=== PATIENT | female | born 1985 | race Caucasian/White ===

== ENCOUNTER 2022-10-10 03:39 | Emergency (ER) | payer OTHER, SELFPAY ==
[2022-10-10 04:03] VITALS: BP 114/66; PULSE 111; RESP 16; TEMP 38.1; O2SAT 100; BMI 27.2
--- OUTSIDE RECORDS SUMMARY | 2022-10-10 04:40 | XMS_ITS | Continuity of Care Document ---
:1985 [facility] Address [address] [place] [id number]- Care Team Providers Name Role Phone Zane NEWELL, Mary Primary Care Physician [place] [facility] [place] 09[place]21 [facility] [address] [place] [address] Allergies, Adverse Reactions, Alerts Substance Reaction Severity Status NKA Active Social History Social History Type Response Smoking Status Never (less than 100 in life time) entered on: 09/08/20 Sex
--- OUTSIDE RECORDS SUMMARY | 2022-10-10 04:40 | XMS_ITS | Continuity of Care Document ---
:1985 Author Organization [facility] Address [address] [place] [address]- Care Team Providers Name Role Phone Zane NEWELL, Mary Primary Care Physician Encounter [facility] Date(s): 04/23/21 - 05/23/21 [facility] [address] [place] [address]- Allergies, Adverse Reactions, Alerts Substance Reaction Severity Status NKA Active Medications naproxen 500 mg oral tablet 1 tablet = 500 mg, By Mouth, 2 times a day, 0 Refills, Maintenance, 09/08/20 16:22:00 EST Start Date: 09/08/20 Status: Ordered Social History Social History Type Response Smoking Status Never (less than 100 in life time) entered on: 09/08/20 Sex
--- OUTSIDE RECORDS SUMMARY | 2022-10-10 04:40 | XMS_ITS | Continuity of Care Document ---
:1985 Author Organization [facility] Address [address] [place] [address]- Care Team Providers Name Role Phone Zane NEWELL, Mary Primary Care [id number] [address] [facility] [place] [address]- Attending Physician: Sofía Lopez MD Admitting Physician: Sofía Lopez MD Referring Physician: Mary Degroot NP Allergies, Adverse Reactions, Alerts No Known Allergies Medications Flonase 50 mcg/inh nasal spray 1 sprays, Nares, Both, 2 times a day, # 16 Gm, 0 Refills, Maintenance, 09/30/19 18:24:24 EST, [place] Start Date: 09/30/19 Status: Ordered Social History Social History Type Response Smoking Status Never (less than 100 in life time) entered on: 09/08/20 Sex
[2022-10-10 04:49] LABS: Influenza A PCR POSITIVE (Negative); Influenza B PCR NEGATIVE (Negative); Resp Syncy Virus RNA Qual PCR NEGATIVE (Negative); SARS COV2 PCR INHOUSE NEGATIVE (Negative)
--- NOTE | 2022-10-10 05:42 | ED_ITS ---
HPI - URI/Sore Throat General Chief Complaint: Upper Respiratory Symptoms Stated Complaint: flu like symptoms Time Seen by Provider: 10/10/22 04:43 Source: patient and supervisor [employer] Mode of arrival: ambulatory Limitations: no limitations History of Present Illness HPI Narrative: 37-year-old female came in for evaluation of fever, body aches, coughing, sore throat, patient was exposed to her daughter who is sick patient's symptoms started since yesterday. Related Data Previous Rx's Medication Instructions Recorded oseltamivir 75 mg capsule (Tamiflu) 75 mg PO BID 5 days #10 caps 10/10/22 Allergies Allergy/AdvReac Type Severity Reaction Status Date / Time No Known Allergies Allergy Verified 10/10/22 05:40 Review of Systems Review of Systems: All other systems are reviewed and are negative Constitutional: Reports as per HPI and Reports no additional constitutional complaints Eyes: Reports as per HPI and Reports no additional eye complaints Reports system reviewed and no additional complaints, except as documented Cardiovascular: Reports as per HPI and Reports no additional cardiovascular complaints Respiratory: Reports as per HPI and Reports no additional respiratory complaints Gastrointestinal: Reports as per HPI and Reports no additional gastrointestinal complaints Genitourinary: Reports no additional female genitourinary complaints Musculoskeletal: Reports no additional musculoskeletal complaints Skin/Breast: Reports system reviewed and no additional complaints, except as docu Psychiatric: Reports no additional psychiatric complaints Endocrine: Reports no additional endocrine complaints Hematologic/Lymphatic: Reports no additional hematologic/lymphatic complaints Allergic/Immunologic: Reports no additional allergic/immunologic complaints Reports system reviewed and no additional complaints, except as documented and Reports Abnormal speech present [facility] Social History Social History Advance Directives: No Physical Exam Vital Signs: Vital Signs: Last Vital Signs Temp 100.6 F H 10/10/22 04:03 Pulse 111 H 10/10/22 04:03 Resp 16 10/10/22 04:03 BP 114/66 10/10/22 04:03 Pulse Ox 100 10/10/22 04:03 O2 Del Method 10/10/22 04:03 BMI result Body Mass Index 27.2 Vital signs have been reviewed as appeared to be correct. Blood pressure normal. Heart rate normal. Respiration rate normal. Temperature normal. Oxygen saturation normal. Appearance: Alert. Oriented X3. No acute distress. Head: Normal external exam. Normocephalic. Atraumatic. No Le signs noted. No raccoon eyes noted Eyes: PERRLA. EOMI. Conjunctiva and sclera normal. Eyelids normal. ENT: TM's Normal. Pharynx normal. Uvula midline. Moist mucous membranes. No trismus noted. No drooling noted. No muffled voice noted. Neck: Normal inspection. Neck supple. FROM. No adenopathy. Thyroid Normal. No meningeal signs. No neck mass noted. CVS: Normal heart rate and rhythm. Heart sound normal. No murmurs noted. Pulses normal throughout. Respiratory: No respiratory distress. Painless inspiration. Breath sounds normal. No wheezes/rales/rhonchi noted. Chest nontender. No accessory muscle usage noted or decreased air movement noted. Abdomen: Soft and nontender. Bowel sounds normal in all 4 quadrants. No distention noted. No organomegaly noted. No visible injury noted. Back: No CVA tenderness. Full range of motion noted. Skin: Skin warm and dry. Normal skin color. Normal skin turgor. No rashes/lesions/lacerations noted. Extremities: No lower extremity edema. Extremities exhibit normal range of motion. Extremities nontender. Neuro: Oriented X 3. Cranial nerve exam: II-XII are grossly intact No motor deficit. No sensory deficit. Reflexes normal. Course Course Course Narrative: Patient is positive flu a, will start the patient on Tamiflu and Tylenol for fever. Medical Decision Making Medical Decision Making Differential Diagnoses: Differential diagnosis (Influenza/RSV/COVID.) Lab Attestation: I reviewed the patient's lab results. Discharge Plan Discharge Clinical Impression: Influenza Patient Disposition: Home, Self-Care Instructions: Influenza (ED) Prescriptions: New oseltamivir [Tamiflu] 75 mg capsule 75 mg PO BID 5 Days Qty: 10 0RF Referrals: Physician,Unknown J [Primary Care Provider] - Stand Alone Forms: Work/School Release
[2022-10-10] MEDS: Acetaminophen 325 MG TABLET 650 MG PO (05:49)
== END 2022-10-10 06:24 | disposition home or self-care (01) ==
PROVIDERS: Emergency Provider Emergency Medicine
DX: J10.1 Influenza due to other identified influenza virus with other respiratory manifestations (principal); M79.10 Myalgia, unspecified site; R50.9 Fever, unspecified; R05.9 Cough, unspecified; Z20.822 Contact with and (suspected) exposure to COVID-19
CPT/HCPCS: 0241U; 99283

== ENCOUNTER 2025-02-28 22:36 | Emergency (ER) | payer OTHER, SELFPAY ==
[2025-02-28 22:43] VITALS: BP 120/70; PULSE 78; RESP 18; TEMP 37; O2SAT 98; BMI 26.9
--- OUTSIDE RECORDS SUMMARY | 2025-02-28 22:52 | XMS_ITS | Clinical Summary ---
Author Organization [facility] Address [address] [place] [address] Care Team Providers Care Pharmacovigilance Safety Expert Name Role Phone Heydi Riggins PA-C Primary Care Provider [phone] Source Comments PLEASE NOTE, if this patient is a minor, it may be UNLAWFUL to discuss sensitive information that is contained in these records (such as FAMILY PLANNING, MENTAL HEALTH or SUBSTANCE ABUSE) with the minor patient's parent or other person without the patient's specific authorization.[facility] Allergies No known active allergies Medications hydrOXYzine HCL (ATARAX) 50 mg tabletIndicatio ns:Anxiety,Trou ble in sleeping Take 1 Tablet by mouth nightly at bedtime as needed for anxiety or sleep 30 Tablet 2 2 Active benzonatate (TESSALON) 200 mg capsuleIndicati ons:Viral URI with cough Take 1 Capsule by mouth 3 (three) times daily as needed for cough 30 Capsule 2 Active dextromethorpha n-guaifenesin (ROBITUSSIN COUGH-CHEST JOHNY DM) 5-100 mg/5 mL syrupIndication s:Viral URI with cough Take 5 mL by mouth 3 (three) times daily as needed for cough or congestion 236 mL 2 Active Active Problems Problem Noted Date Diagnosed Date H/O tubal ligation 10/18/2019 Chronic pain of left knee 10/18/2019 Encounter for initial prescription of contracept michelle pills 10/18/2019 H/O LEEP 10/18/2019 Overview (10/18/2019): Performed - 06/03/2019. 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 Margins are negative for dysplasia. Low grade squamous intraepit helial lesion (LGSIL) on cervical Pap smear 10/18/2019 Overview (10/18/2019): Diagnosed 03/01/2019. Negative for HPV 16, 18/45 Status post bilateral salpingectomy 10/18/2019 Overview (10/18/2019): Per report 01/10/2015: Bilateral Segmental salpingectomy. Right fallopian tube: Benign fallopian tube with no significant abnormality. Left Fallopian tube: Benign fallopian tube with no significant abnormality. Fibrocystic breast changes, bilateral 09/20/2019 Overview (10/18/2019): Dx'd in [place] via Mammography 2018. Breast U/S done 02/03/2019. Impression: There is a 0.9 cm cyst at 2:00 in the right breast. BI-RADS Cat 2, benign finding right breast. Menorrhagia with regular cycle 09/20/2019 Immunizations Immunization Administration Dates Next Due Flu, Preservative Free 08/23/2020,09/20/2019 Hep B,adult,adjuvanted (HEPLISAV) 02/06/2023 MODERNA COVID-19 VACCINE BIVALENT, BLUE CAP, 6M+ 02/06/2023 Moderna COVID-19 Vaccine, re d cap blue label, 12+ Primary Series 01/05/2021,12/08/2020 PPD 01/02/2021 Family History Medical History Relation Name Comments Asthma Brother No Known Problems Daughter 2 Heart attack Father Stomach Cancer Maternal Grandmother Prostate Cancer Maternal Uncle 2 Asthma Mother COPD Mother Diabetes Mother Asthma Sister No Known Problems Son Relation Name Status Comments Brother Alive Daughter 2 Alive Father Maternal Grandmother Maternal Uncle 2 Alive Mother Alive Sister Alive Son Alive Social History Tobacco Use Types Packs/Day Years Used Date Smoking Tobacco: Never Smokeless Tobacco: Never Tobacco Cessation:Counseling Given: Not Answered Alcohol Use Standard Drinks/Week Comments Never 0 (1 standard drink = 0.6 oz pur e alcohol) Social Connections Answer Date Recorded Connectedness 0 02/11/2022 Financial Resource Strain Answer Date R ecorded Financial Resource Strain 0 2021 Stress Answer Date Recorded Stress 0 02/11/2022 Physical Activity Answer Date Recorded Physical Activity 0 09/20/2019 Food Insecurity Answer Date Recorded Food 0 02/11/2022 Transportation Needs Answer Date Record ed Transportation 0 02/11/2022 Housing Stability Answer Date Recorded Housing 0 02/11/2022 Safety and Environment Answer Date Bill rded Safety 0 02/11/2022 Utilities Answer Date Recorded Utilities 0 02/11/2022 Employment Answer Date Recorded Employment 0 09/20/2019 Comments No Sex and Gender Information Value Date Recorded Sex Assigned at Female 09/20/2019 9:27 AM PST Legal Sex Female 6:51 AM PDT Gender Identity Female 09/20/2019 9:27 AM PST Sexual Orientation Straight 09/20/2019 9: 27 AM PST Occupation Industry Job Start Date Job End Date 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 [employer] Not on file Not on file Not on file Last Filed Vital Signs Vital Sign Reading Time Taken Comments Blood Pressure 120/80 02/06/2023 10:30 AM EDT Pulse 88 02/06/2023 10:30 AM EDT Temperature 36.8 ??C (98.3 ??F) 02/06/2023 10:30 AM E DT Respiratory Rate 16 02/06/2023 10:30 AM EDT Oxygen Saturation 100% 02/06/2023 10:30 AM EDT Inhaled Oxygen Concentration - - Weight 62.9 kg (138 lb 9.6 oz) 02/06/2023 10:30 AM EDT Height 149.9 cm (4' 11 ) 02/06/2023 10:30 AM EDT Body Mass Index 27.99 02/06/2023 10:30 AM EDT Plan of Treatment Health Maintenance Due Date Last Done Comments Anxiety Screening 1986 HPV Screening 1985 Pap + HPV 1986 Tobacco Screening 1985 Cervical Cancer Screening 06/07/2020 Pap Smear 06/07/2020 06/07/2019 (Simin chester by Outside Provider) Relationship Safety Screening/Counseling 02/11/2023 02/11/2022, 01/24/2021, 09/20/2019 Imm-Hepatitis B (2 of 2 - Cp G 2-dose series) 03/06/2023 02/06/2023 Annual Preventive Care Visit 02/07/202404/2023, 01/24/2021, 10/18/2019 [id number] ( season) 2024 02/06/2023, 10/02/2021, 01/05/2021, Additional history exists Imm-Influenza (#1) 2024 08/23/2020, 09/20/2019 Alcohol and Drug Screen 11/03/2024 02/07/20 23, 02/11/2022, 01/24/2021, Additional history exists Depression Annual Screen 11/03/2024 02/06/2023 Hypertension Screening (#1) 02/05/2026 Diabetes Screening 02/06/2026 02/06/2023, 1 11/21/2018, 09/21/2019 Imm-DTaP/Tdap/Td (2 - Td or Tdap) 11/03/2027 11/03/2017 (Managed by Outside Provider) HIV Screening Completed 09/21/2019 Hepatitis C Screening Completed 02/06/2023 Cervical Ablation/Cold-Knife Conization Discontinued Cervical Cryotherapy Discontinued Colposcopy Discontinued Endometrial Biopsy Discontinued Excision/Leep Discontinued HPV Genotyping Discontinued Vaginal Pap Discontinued Vulvoscopy Discontinued Procedures Procedure Name Priority Date/Time Associated Diagnosis Comments ACUTE HEPATITIS PANEL W/RFLX Routine 02/06/2023 11:06 AM EDT Routine screening for STI (sexually transmitted infection) Annual physical exam COMPREHENSIVE METABOLIC PANEL Routine 02/06/2023 11:06 AM EDT Menorrhagia with regular cycle ANTIBODY HIV-1&HIV-2 SINGLE RESULT Routine 09/21/2019 9:02 AM EST Encounter for medical examination to establish care from Last 3 Months or Most Recently Relevant to Health Maintenance Results * ACUTE HEPATITIS PANEL W/RFLX (02/06/2023 11:06 AM EDT) HEPATITIS A IGM ANTIBODY NON-REACT MICHELLE NON-REACT MICHELLE [employer] [facility] COMMENT [employer] [facility] HEPATITIS B SURFACE ANTIGEN NON-REACT MICHELLE NON-REACT MICHELLE [employer] [facility] HEPATITIS B CORE IGM ANTIBODY NON-REACT MICHELLE NON-REACT MICHELLE [employer] HEPATITIS C ANTIBODY NON-REACT MICHELLE NON-REACT MICHELLE [employer] SIGNAL TO CUT-OFF 0.07 <1.00 [employer] Comment: HCV antibody was non-reactive. There is no laboratory evidence of HCV infection. In most cases, no further action is required. However, if recent HCV exposure is suspected, a test for HCV RNA (test code 94814) is suggested. For additional information please refer to http://Roundbox.Pivto/faq/DMQ36s8 (This link is being provided for informational/ educational purposes only.) Blood Blood / Unknown 02/06/2023 1 1:06 AM EDT 02/06/2023 11:06 AM EDT Narrative [facility] - 02/07/2023 1:56 AM EDT For additional information, please refer to http://Roundbox.Pivto/faq/BJV609 (This link is being provided for informational/ educational purposes only.) Heydi Riggins PA-C LAB - BLOOD DRAW Final Resul t [facility] [address] [address], [employer] [address] [id number] * COMPREHENSIVE METABOLIC PANEL (02/06/2023 11:06 AM EDT) GLUCOSE 96 65 - 99 mg/dL [employer] [facility] Comment: ?Fasting reference interval UREA NITROGEN (BUN) 11 7 - 25 mg/dL [employer] [facility] CREATININE (blood) 0.63 0.50 - 0.97 mg/dL [employer] [facility] EGFR 118 > OR = 60 mL/min/1 .73m2 [employer] Comment: The eGFR is based on the CKD-EPI 2020 equation. To calculate the new eGFR from a previous Creatinine or Cystatin C result, go to https://www.kidney.org/professionals/ kdoqi/gfr%5Fcalculator BUN/CREATININE RATIO NOT APPLICABLE 6 [employer] SODIUM 139 135 - 146 mmol/L [employer] POTASSIUM 4.6 3.5 - 5.3 mmol/L [facility] CHLORIDE 106 98 - 110 mmol/L [facility] CARBON DIOXIDE 26 20 - 32 mmol/L [facility] CALCIUM 9.0 8.6 - 10.2 mg/dL [facility] PROTEIN, TOTAL 7.0 6.1 - 8.1 g/dL [facility] ALBUMIN 4.2 3.6 - 5.1 g/dL [facility] GLOBULIN 2.8 1.9 - 3.7 g/dL (calc) [facility] ALBUMIN/GLOBUL IN RATIO 1.5 1.0 - 2.5 (calc) [facility] BILIRUBIN, TOTAL 0.5 0.2 - 1.2 mg/dL [facility] ALKALINE PHOSPHATASE 62 31 - 125 U/L [facility] AST 12 10 - 30 U/L [facility] ALT 11 6 - 29 U/L [facility] Blood Blood / Unknown 02/06/2023 1 1:06 AM EDT 02/06/2023 11:06 AM EDT Heydi Riggins PA-C LAB - BLOOD DRAW Final Resul t [facility] [address] [address], [facility] [address] [address] * HIV-1 & HIV-2 ANTIBODIES (09/21/2019 9:02 AM EST) [facility] Signature HIV 1 AND 2 ANTIBODY SCREEN NEGATIVE NEGATIVE [employer] [facility] Comment: This assay is a 4th generation assay allowing for earlier detection of HIV infection by detecting the presence of the HIV-1 p24 antigen as well as the traditional antibodies to HIV type 1 (including group O) and type 2. ??Use of a 4th generation assay is the current CDC recommendation for HIV screening. Blood specimen (specimen) Blood / Unknown 09/21/2019 9:02 AM EST 09/21/2019 9:10 AM EST Narrative [facility] - 09/21/2019 2:32 PM EST I and love and you, a member of [facility] [address] [place] [address] Award Clerk - Tamar Henning MD PT ID [id number] ORD# [id number] us Mary [facility]UE LAB - BLOOD DRAW Final Resu lt [employer] [facility] [address] [place] [address], from Last 3 Months or Most Recently Relevant to Health Maintenance Insurance [id number] Care Teams Pharmacovigilance Safety Expert Relationship Specialty Start Date End Date Hyedi Riggins PA-C [address] [place] [address] PCP - General [facility] 02/11/22
--- NOTE | 2025-02-28 23:20 | ED_ITS ---
HPI - URI/Sore Throat General Chief Complaint: Upper Respiratory Symptoms Stated Complaint: headache /congestion / eyes hurt / sneeezing cough Time Seen by Provider: 02/28/25 23:05 Source: patient Mode of arrival: ambulatory Limitations: no limitations History of Present Illness ED Provider: NIEVES TAYLOR Narrative: 39 yo female with PMH of allergies who has had 2 days of sinus pressure, watery eyes, nasal congestion, no fevers/chills, has dry cough. Her doctor told her to take sudafed but she doesn't like it. She takes zyrtec. no travel or sick contacts. MD elicited complaint: cough, rhinorrhea, nasal congestion and sinus pain Pertinent past history: seasonal allergies Onset (ago): day(s) (2) Consistency: constant Severity: mild Description of mucous: watery Exacerbating factors: changing head position Relieving factors: nothing Context: other Associated symptoms: nasal congestion and cough Treatments prior to arrival: none Related Data Previous Rx's ?Medication ?Instructions ?Recorded oseltamivir 75 mg capsule (Tamiflu) 75 mg PO BID 5 days #10 caps 10/10/22 oseltamivir 75 mg capsule (Tamiflu) 75 mg PO BID 5 days #10 caps 10/10/22 Allergies Allergy/AdvReac Type Severity Reaction Status Date / Time No Known Allergies Allergy Verified 02/28/25 22:45 Review of Systems Review of Systems: Constitutional : No Fever, No Chills, No Fatigue ENT/Mouth : No sore throat, pos Rhinorrhea, pos sinus pain Eyes: No Eye Pain, No Swelling, No Redness Cardiovascular : No Chest Pain, No SOB, No Dyspnea on Exertion Respiratory : pos Cough, No Sputum Gastrointestinal : No Nausea, No Vomiting, No Diarrhea, No abdominal Pain Genitourinary : No Dysuria, No Urinary Frequency, No Hematuria, Musculoskeletal : No joint pain, No Myalgias, No Joint Swelling Skin : No Skin Lesions, No rash Neuro : No Weakness, No Numbness, No Dizziness, positive Headache All other systems reviewed and are negative [facility] Past Medical History Attestation statement: The following information was validated with the patient. Source: old records reviewed Medical History Seasonal allergies Social History Social History (Updated 02/28/25 @ 23:53 by Sunita Garland DO) Patient Tobacco Use Status: Never used Tobacco Physical Exam Vital Signs: Vital Signs: Last Vital Signs Temp 98.6 F 02/28/25 22:43 Pulse 78 02/28/25 22:43 Resp 18 02/28/25 22:43 BP 120/70 02/28/25 22:43 Pulse Ox 98 02/28/25 22:43 O2 Del Method Room Air 02/28/25 22:43 BMI result Body Mass Index 26.9 Appearance: Alert. Oriented X3. No acute distress. Eyes: Pupils equal, round and reactive to light. ENT: Pharynx normal. TMs normal bilaterally Neck: Normal inspection. Neck supple. CVS: Normal heart rate and rhythm. Pulses normal. Respiratory: No respiratory distress. Breath sounds normal. Abdomen: Soft and nontender. Skin: Skin warm and dry. Normal skin color. Extremities: No lower extremity edema. Neuro: Oriented X 3. No motor deficit. No sensory deficit. CN2-12 intact Medical Decision Making Medical Decision Making [facility] Narrative: 39 yo female with PMH of allergies here with URI symptoms for 2 days she is not toxic, lungs are CTAB she appears well at this time discussed viral syndrome and OTC medications/saline wash. She will try that. No indications for abx no fevers no facial swelling. Differential Diagnosis Differential Diagnoses: The differential diagnosis associated with the presentation includes URI, viral symndrome, allergies Lab Data [facility] Lab Attestation statement: I reviewed the patient's lab results. Labs: Lab Results 02/28/25 Range/Units 22:54 Influenza Type A (PCR) NEGATIVE (Negative) Influenza Type B (PCR) NEGATIVE (Negative) RSV RNA Qual (PCR) NEGATIVE (Negative) SARS-CoV-2 RNA (RT-PCR) NEGATIVE (Negative) External Record Review External record reviewed: Outpatient record Prescription Management I considered prescription management with: Other Discharge Plan Discharge Clinical Impression: Upper respiratory infection Qualifiers: URI type: unspecified URI Qualified Code(s): J06.9 - Acute upper respiratory infection, unspecified Patient Disposition: Home, Self-Care Instructions: Upper Respiratory Infection (ED) Additional Instructions: negative for covid, flu, rsv return for any worsening symptoms such as high fevers, difficulty breathing, chest pain, or any other concerns use over the counter saline nasal spray Prescriptions: No Action oseltamivir [Tamiflu] 75 mg capsule 75 mg PO BID 5 Days Qty: 10 0RF oseltamivir [Tamiflu] 75 mg capsule 75 mg PO BID 5 Days Qty: 10 0RF Stand Alone Forms: Work/School Release Print Language: Slovenian
[2025-02-28 23:38] LABS: Influenza A PCR NEGATIVE (Negative); Influenza B PCR NEGATIVE (Negative); Resp Syncy Virus RNA Qual PCR NEGATIVE (Negative); SARS COV2 PCR INHOUSE NEGATIVE (Negative)
[2025-02-28 23:57] VITALS: BP 120/70; PULSE 78; RESP 18; TEMP 37; O2SAT 98
== END 2025-02-28 23:58 | disposition home or self-care (01) ==
PROVIDERS: Emergency Provider Emergency Medicine; PCP Nurse Practitioner Family
DX: J06.9 Acute upper respiratory infection, unspecified (principal); R51.9 Headache, unspecified; R05.9 Cough, unspecified; R09.81 Nasal congestion; Z03.818 Encounter for observation for suspected exposure to other biological agents ruled out
CPT/HCPCS: 0241U; 99283; 99284